=== PATIENT | female | born 1955 | race Caucasian/White ===

== ENCOUNTER 2023-10-04 10:55 | Outpatient (OUT) | payer MEDICARE, SELFPAY ==
--- NOTE | 2023-10-04 | XR_ITS ---
The [address] [address] Patient Name: ANTONIA STRAUSS MRN: [id number] date: 1955 Sex: F Assigned Patient Location: [facility] Current Patient Location: Accession/Order Number: [id number] Exam Date: 10/04/2023 10:56 Report Date: 10/05/2023 06:30 At the request of: MARISSA LOREDO Procedure: XR foot LT min 3V PROCEDURE: XR foot LT min 3V HISTORY: LEFT FOOT PAIN ; toe pain COMPARISON: None. FINDINGS: BONES:Mild degenerative changes of the first metatarsophalangeal joint. No fracture, dislocation, bone lesion. Degenerative enthesopathic spurring of the calcaneus. SOFT TISSUES:No visible soft tissue swelling. EFFUSION:None visible. OTHER: Negative. XR/XR foot LT min 3V IMPRESSION: 1. Mild degenerative changes. 2. No acute bone abnormality. Electronically authenticated by: GENESIS AVALOS Date: 10/05/2023 06:30
== END 2023-10-04 10:56 | disposition home or self-care (01) ==
PROVIDERS: Visit Provider Physician Assistant
DX: M79.672 Pain in left foot (principal)
CPT/HCPCS: 73630

== ENCOUNTER 2023-12-07 12:12 | Outpatient (OUT) | payer MEDICARE, SELFPAY ==
--- NOTE | 2023-12-07 12:49 | VEIN_ITS ---
Patient Name: ANTONIA STRAUSS MR#: [id number] : 1955 Exam Date: 12/07/2023 Ordering Doctor: MARISSA DWYER RADIOLOGY REPORT PROCEDURE: [facility] - OFFICE VISIT INITIAL COMPARISON: None. PROGRESS NOTES: [age] year old female who presents with a 3 month year history of dorsal left foot pain and enlarged veins. There has been persistent pain when wearing shoes and sometimes at night since pulling a tendon in her foot 3 months ago The patient describes an improvement with anesthetic cream. The patient denies any signs and symptoms to suggest arterial ischemia. The patient describes a family history varicose veins on maternal side, diabetes mellitus, heart disease, cancer. The patient has drinking and smoking history of : None. Patient has a past medical history significant for arthritis. The patient denies a history of deep venous thrombus or pulmonary embolus. See separate history and physical for medication list. No prior treatment for varicose or spider veins. Current use of compression stockings. After review of nurse notes, history and physical exam I discussed at length the pathophysiology of venous hypertension and possible treatments, therapies and strategies available. We discussed at length the importance of elevating the lower extremities above the level of the heart, increased physical activity and compression stocking use. Ultrasound venous reflux study performed today was discussed at length with the patient. The report demonstrates no abnormally dilated superficial veins and no abnormal reflux. PHYSICAL EXAM: The right leg demonstrates no abnormal varicosities, a few scattered spider veins, no ulceration, no significant edema, no skin discoloration. The left leg demonstrates no varicosities, no spider veins, no ulceration, no significant edema, no skin discoloration. Both thighs, legs and feet were symmetrically warm to the touch. Good posterior tibial and dorsalis pedis pulses were present bilaterally. VEIN/ Facility EST Comprehensive IMPRESSION: 1. No significant venous insufficiency 2. No significant lower extremity varicose veins 3. No significant lower extremity subcutaneous edema 4. No flow significant arterial disease 5. CEAP: C0, EN, AN, PN PLAN: 1. Continued use of compression stockings 2. Elevated legs and increased physical activity symptomatic relief 3. Follow-up with primary care physician. 4. No abnormally dilated or incompetent superficial veins within the lower extremities in need of treatment. Nurse notes, history and physical were reviewed and confirmed, see attached forms. The nurse was present throughout the physical exam and consultation Dictated by: Ritesh Harris M.D. on 12/07/2023 at 13:50 Approved by: Ritesh Harris M.D. on 12/07/2023 at 14:06
--- NOTE | 2023-12-07 12:51 | VEIN_ITS ---
Patient Name: ANTONIA STRAUSS MR#: [id number] : 1955 Exam Date: 12/07/2023 Ordering Doctor: MARISSA DWYER RADIOLOGY REPORT PROCEDURE: VC EXT VENOUS REFLUX DIANA LMTD COMPARISON: None. INDICATIONS: I80.0 Phlebitis and thrombophlebitis TECHNIQUE: Duplex imaging of the lower extremity to assess the deep and superficial venous system for the presence of deep or superficial venous incompetence and to document the location and severity of disease. The study includes evaluation of the great saphenous vein (GSV), anterior accessory saphenous vein (AASV) and small saphenous vein (SSV). Patient scanned in reverse Trendelenburg and standing. FINDINGS: RIGHT LOWER EXTREMITY: Saphenofemoral Junction Reflux: YesNo 3.6mm sec GSV: Diam (mm) Reflux/ Time (sec) Proximal Thigh 2.0 No Mid Thigh 2.2 No Distal Thigh 1.6 No Prox Calf N/A Mid Calf N/A Saphenopopliteal Junction Reflux: 4.9mm No SSV: Proximal Calf 4.0 No Mid Calf 2.1 No AASV: Proximal Thigh 1.2 No Mid Thigh 1.7 Distal Thigh Thrombi: Chronic thrombus visualized within SSV. Compressibility: Normal Flow: Normal Preforator: Dist/med calf 2.1mm with 0s reflux. Tech Note: No patent varicose veins visualized. GSV is discontinuous after distal thigh. LEFT LOWER EXTREMITY: Saphenofemoral Junction Reflux: No 6.9 mm sec GSV: Diam (mm) Reflux/Time (sec) Proximal Thigh 4.4 No Mid Thigh 3.5 No Distal Thigh 4.6 No Prox Calf N/A Mid Calf N/A Saphenopopliteal Junction Relux: 4.2 mm No SSV: Proximal Calf 2.6 No Mid Calf 1.2 No AASV: Not present Proximal Thigh Mid Thigh Distal Thigh Thrombi: No acute or chronic thrombus visualized Compressibility: Normal Flow: Normal Certified Phlebotomist: Dist/med calf 2.7mm with 0s reflux. Tech Note: No patent varicose veins visualized. GSV is discontinuous after distal thigh . CONCLUSION: 1. No significantly dilated or incompetent superficial veins within the right or left lower extremity. Dictated by: Ritesh Harris M.D. on 12/07/2023 at 13:46 Approved by: Ritesh Harris M.D. on 12/07/2023 at 13:50
== END 2023-12-07 12:13 | disposition home or self-care (01) ==
PROVIDERS: Visit Provider Physician Assistant
DX: I80.00 Phlebitis and thrombophlebitis of superficial vessels of unspecified lower extremity (principal); I83.813 Varicose veins of bilateral lower extremities with pain
CPT/HCPCS: 93970; G0463